=== PATIENT | female | born 1980 | race Caucasian/White ===

== ENCOUNTER → 2018-01-23 | Outpatient (CLI) | payer BC, OTHER ==
--- NOTE | ~2018-01-23 | SLE ---
[facility] [place] [address] POLYSOMNOGRAPHY STUDY Name: RAFAELA FLORES Room #: REG MARIA EdwardYrn#: [id number] Admission: 01/23/18 Attend Phys: Saul Bejarano MD Discharge: Date of : 84 Report #: [id number] THIS REPORT FOR: //name// CC: Saul Goldman DO DATE OF SERVICE: 01/24/2018 ATTENDING PHYSICIAN: Dr. Johann Goldman. The patient is 37 years old who weighs 382 pounds and is 67 inches tall with a BMI of 59.8. The patient's [place] score was 10. The patient underwent sleep study at [facility]. This was a diagnostic study. During the night of study, the patient spent 359 minutes in bed and slept for 395 minutes with a sleep efficiency of 85.9%. Sleep latency was 21.5 minutes with a REM latency of 243 minutes. Overall, sleep architecture showed normal stage 1 sleep, increased stage 2 sleep, normal slow wave and reduced REM sleep. During the night of study, the patient's EKG monitoring revealed an average heart rate of 70 beats per minute. The patient had PVCs seen throughout. Occasional bigeminy and trigeminy were also seen. PLMS was seen at an index of 3.9 per hour and 1 per hour caused EEG arousals. Nocturnal oximetry study revealed an average oxygen saturation of 94% with a lowest of 84%. Only 3.6 minutes were spent at an oxygen saturation of less than 89%. During the night of the study, the patient had no obstructive central or mixed apneas. There were 19 hypopneas. The patient's apnea-hypopnea index for the entire night was only 2.9 per hour. The patient's supine index was 5.9 per hour with a REM index of 18 per hour. Due to low AHI, the patient did not meet the split night criteria for CPAP initiation. IMPRESSION: Overall no clinically significant sleep disordered breathing. The patient's AHI for the entire night was 2.9 per hour. The patient did have mild increase in respiratory events during supine and REM sleep. No clinically significant nocturnal hypoxia. Abnormal EKG with frequent PVCs seen throughout the study. RECOMMENDATIONS: [address] [address] POLYSOMNOGRAPHY STUDY Name: RAFAELA FLORES [facility] [id number] Admission: 01/23/18 Attend Phys: Saul Bejarano MD Discharge: Date of : 84 Report #: [id number] 1. The patient did not meet the split night criteria for CPAP initiation due to low AHI. 2. Weight loss is advised. In addition, positional sleep therapy would be helpful as well. 3. Avoid [employer] depressants. 4. Caution regarding driving until the patient's hypersomnia is resolved. 5. The patient should have a followup with Cardiology regarding abnormal EKG. <ELECTRONICALLY SIGNED> By: Suraj Hogan MD 01/26/18 0656 [id number] Suraj Hogan MD /nt
== END ==
LOC: SLEEPLAB 11:54
DX: G47.30 Sleep apnea, unspecified (principal)

== ENCOUNTER → 2018-08-20 | Outpatient (CLI) | payer BC, OTHER ==
--- NOTE | 2018-08-21 07:48 | EKG ---
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 DONOHUE : 1980 Requested By: Johann Goldman Order Number: [id number] MD: Zach Lee Measurements Intervals [place] Rate: 64 P: 31 OK: 125 QRS: 41 QRSD: 111 T: 26 QT: 423 QTc: 437 Interpretive Statements Sinus rhythm Normal tracing No previous ECG available for comparison Electronically Signed On 08-21-2018 7:47:54 CDT by Zach Lee [email or web address] ��������������������������������������������� <ELECTRONICALLY SIGNED> ���������������������������������������� By: Zach Lee MD, [facility] ��������������������������������������������� 08/21/18 0747 1317 1317 Zach Lee MD, FACC /EPI
== END ==
LOC: RAD 12:33
DX: Z01.818 Encounter for other preprocedural examination (principal); J98.4 Other disorders of lung; Z88.8 Allergy status to other drugs, medicaments and biological substances; Z91.048 Other nonmedicinal substance allergy status